=== PATIENT | female | born 1970 | race Caucasian/White ===

== ENCOUNTER → 2024-12-26 | Outpatient (CLI) | payer BC ==
[~2024-12-26] MED LIST: ESCI10 PO; MELO7.5 PO; OLMESARTAN MEDO20 MG PO; PENVK250 PO; PHENTERAMINE
== END ==
LOC: LAB 11:12 → LAB SHORT 11:12
PROVIDERS: Obstetrics & Gynecology
DX: Z01.419 Encounter for gynecological examination (general) (routine) without abnormal findings (principal)
CPT/HCPCS: 87624; G0145